=== PATIENT | female | born 1955 | race American Indian/Alaskan Native ===

== ENCOUNTER 2017-03-17 08:37 | Day surgery (SDC) | payer OTHER ==
[2017-03-17 09:00] VITALS: BMI 24.7
[2017-03-17 09:29] VITALS: PULSE 58; RESP 18
[2017-03-17 11:59] VITALS: BP 147/81; TEMP 98.4; O2SAT 100
--- NOTE | 2017-03-17 12:48 | CP.SDSHP ---
Same Day Surgery H & P - History Proposed Procedure: FNA right thyroid nodule Pre-Op Diagnosis: right thyroid nodule - Allergies Allergies: Allergies No Known Allergies Allergy (Verified 02/12/15 08:26) - Physical Exam Vital Signs: Vital Signs 03/17/17 03/17/17 09:00 11:37 Temperature 97.6 F 98.4 F Pulse Rate 58 L 58 L Respiratory 18 18 Rate Blood Pressure 144/66 147/81 O2 Sat by Pulse 99 100 Oximetry Mental Status: Alert & Oriented x3 - Impression Impression: Pt with thyroid nodule. plan FNA right thyroid nodule Pt. Evaluated Today:Candidate for Anesthesia & Procedure: No - Date & Time Date: 03/17/17 Time: 11:00 Short Stay Discharge - Short Stay Discharge Admitting Diagnosis/Reason for Visit: THYROID NODULE
--- NOTE | 2017-03-17 12:49 | PCM.SURG1 ---
Surgeon's Initial Post Op Note - Surgeon's Notes Surgeon: Casimiro Milton MD Air Brake Man: None Type of Anesthesia: Local Pre-Operative Diagnosis: right thyroid nodule Operative Findings: right thyroid nodule Post-Operative Diagnosis: right thyroid nodule Operation Performed: FNA right thyroid nodule Specimen/Specimens Removed: 25 g x 4 Estimated Blood Loss: EBL {In ML}: 0 Blood Products Given: N/A Drains Used: No Drains Post-Op Condition: Good Date of Surgery/Procedure: 03/17/17 Time of Surgery/Procedure: 11:30
--- NOTE | 2017-03-21 13:32 | US ---
PROCEDURE: Date of Procedure: 03/17/2017 PROCEDURE: 1. Ultrasound guided FNA of right thyroid nodule, CPT 57087 2. Ultrasound guidance for FNA, 08018 Medications: 3cc 1% Lidocaine HISTORY: Enlarged right thyroid nodule. TECHNIQUE: Following informed consent and procedure time-out, a limited ultrasound patient's neck confirmed the presence of a 1.8 cm complex right thyroid nodule which is predominantly solid. After the patient's neck was prepped and draped in the usual sterile fashion, the skin was anesthetized with 1% lidocaine. Ultrasound-guided fine needle aspiration was then performed of the dominant right thyroid nodule. A total of 4 passes were made into the nodule with 25 gauge needle under ultrasound guidance. The FNA specimen was sent for routine pathology. Post biopsy ultrasound showed no hematoma. IMPRESSION: Ultrasound-guided FNA of the dominant right thyroid nodule.
== END 2017-03-17 12:02 | disposition home or self-care (01) ==
LOC: C.SPRAD 08:37
PROVIDERS: ATTEND Radiology Vascular & Interventional Radiology
DX: E04.2 Nontoxic multinodular goiter (principal)

== ENCOUNTER 2018-07-17 07:52 | Emergency (ER) | payer OTHER ==
[2018-07-17 07:53] VITALS: BMI 24.7
[2018-07-17] MEDS ORDERED: Tdap Vaccine 0.5 ml Vial (10-64 yrs) IM ONE ×2 (08:54→09:29)
[2018-07-17] MEDS ORDERED: Bacitracin 500 Units/gm Oint Foilpak UD TOP ONE (08:55)
--- NOTE | 2018-07-17 08:59 | C.PDOC ---
History Of Present Illness 62 years old female, [employer] [facility] [employer] (formerly [employer]) employee, present to ED for complaints of sustaining a small laceration on her right hand today s/p a patient accidentally scratched her while she working. Patient states she cleaned the wound, placed a bandage, and controlled bleeding. Denies any other complaints. Patient is currently requesting a Tetanus shot. Time Seen by Provider: 07/17/18 08:27 Chief Complaint (Nursing): Abnormal Skin Integrity History Per: Patient History/Exam Limitations: no limitations Onset/Duration Of Symptoms: Hrs Current Symptoms Are (Timing): Still Present Location Of Injury: Right: Hand Recent travel outside of the [facility]: No Past Medical History Reviewed: Historical Data, Nursing Documentation, Vital Signs Vital Signs: Last Vital Signs Temp 98.9 F 07/17/18 08:00 Pulse 66 07/17/18 08:00 Resp 18 07/17/18 08:00 BP 152/92 H 07/17/18 08:00 Pulse Ox 99 07/17/18 08:00 - Medical History PMH: Diabetes, HTN, Hypercholesterolemia - [facility] Procedures COLONOSCOPY (02/12/15) Family History: States: No Known Family Hx - Social History Hx Tobacco Use: No Hx Alcohol Use: No Hx Substance Use: No - Immunization History Hx Tetanus Toxoid Vaccination: No Hx Influenza Vaccination: Yes Hx Pneumococcal Vaccination: No Review Of Systems Constitutional: Negative for: Fever, Chills Gastrointestinal: Negative for: Nausea, Vomiting, Abdominal Pain, Diarrhea Skin: Positive for: Other (Small Laceration on right hand ). Negative for: Rash Neurological: Negative for: Weakness, Numbness Physical Exam - Physical Exam Appears: Well, Non-toxic, No Acute Distress Skin: Normal Color, Warm, Dry, No Rash, Other (Less than 0.5cm superficial laceration over the dorsal aspect of the right hand. No active bleeding.) Head: Atraumatic, Normacephalic Eye(s): bilateral: Normal Inspection, PERRL, EOMI Oral Mucosa: Moist Neck: Supple Chest: Symmetrical Cardiovascular: Rhythm Regular Respiratory: Normal Breath Sounds, No Rales, No Rhonchi, No Wheezing Extremity: Normal ROM Extremity: Bilateral: Atraumatic, Normal Color And Temperature, Normal ROM Pulses: Left Radial: Normal, Right Radial: Normal Neurological/Psych: Oriented x3, Normal Speech Gait: Steady ED Course And Treatment O2 Sat by Pulse Oximetry: 99 (RA) Pulse Ox Interpretation: Normal Medical Decision Making Medical Decision Making: Plan: * Tetanus * Bacitracin Disposition - Disposition Referrals: [facility] [Outside] Disposition: HOME/ ROUTINE Disposition Time: 09:00 Condition: STABLE Additional Instructions: Clean twice a day for soap and water. Apply bacitracin. Instructions: Wound Care (DC) Forms: [facility] (N[place]ian) - Clinical Impression Clinical Impression: Abrasion - PA / EELER / Resident Statement MD/DO has reviewed & agrees with the documentation as recorded. - Scribe Statement The provider has reviewed the documentation as recorded by the Scribe Janet Calderon All medical record entries made by the Scribe were at my direction and personally dictated by me. I have reviewed the chart and agree that the record accurately reflects my personal performance of the history, physical exam, medical decision making, and the department course for this patient. I have also personally directed, reviewed, and agree with the discharge instructions and disposition.
[2018-07-17] MEDS ORDERED: Bacitracin 500 Units/gm Oint Foilpak UD ONE (09:29)
[2018-07-17 11:18] VITALS: BP 139/85; PULSE 82; RESP 20; TEMP 97.8
[2018-07-18 05:40] VITALS: O2SAT 99
== END 2018-07-17 11:15 | disposition home or self-care (01) ==
LOC: C.ER 07:52
DX: S60.511A Abrasion of right hand, initial encounter (principal); W50.4XXA Accidental scratch by another person, initial encounter; Y92.239 Unspecified place in hospital as the place of occurrence of the external cause; Y99.0 Civilian activity done for income or pay; E11.9 Type 2 diabetes mellitus without complications; E78.00 Pure hypercholesterolemia, unspecified; I10 Essential (primary) hypertension